=== PATIENT | female | born 1950 | race Caucasian/White ===

== ENCOUNTER 2021-02-19 09:36 | Outpatient (CLI) | payer MEDICARE, OTHER, SELFPAY ==
--- NOTE | ~2021-02-19 | MM_ITS ---
EXAMINATION: MM screening dennise BI w steph HISTORY: Screening TECHNIQUE: Craniocaudal and mediolateral oblique 3-D tomosynthesis images were obtained and synthetic 2-D images were generated. CAD analysis was submitted and interpreted. COMPARISON: Comparison to multiple prior studies sequentially, with oldest reviewed study dated 12/12. BREAST PARENCHYMAL COMPOSITION: There are scattered areas of fibroglandular density. FINDINGS: There is no evidence of suspicious mass, calcification, or architectural distortion to sugg est malignancy in either breast. There has been no suspicious interval change. IMPRESSION: 1. No mammographic evidence of malignancy. 2. Recommend routine screening mammography in one year. BI-RADS Category 1: Negative Reviewed, dictated and finalized at location A.
== END 2021-02-19 09:37 | disposition home or self-care (01) ==
LOC: ANHIMG 09:37
PROVIDERS: PCP Internal Medicine; Visit Provider Student in an Organized Health Care Education/Training Program
DX: Z12.31 Encounter for screening mammogram for malignant neoplasm of breast (principal)
CPT/HCPCS: 77063; 77067

== ENCOUNTER 2021-04-24 09:42 | Emergency (ER) | payer MEDICARE, OTHER, SELFPAY ==
[2021-04-24 09:53] VITALS: BP 134/79; PULSE 69; RESP 16; TEMP 36.7; O2SAT 98
--- NOTE | 2021-04-24 10:19 | ED.GENADULT ---
HPI - General Adult General Chief complaint: Urogenital-Female Stated complaint: UTI Source: patient Mode of arrival: ambulatory Limitations: no limitations History of Present Illness HPI narrative: Patient presents for evaluation of urinary symptoms for last 2 days. Symptoms include dysuria, urinary frequency and hesitancy. She denies any hematuria, abdominal pain, low back pain, fever, chills, nausea, vomiting. She has an underlying history of diabetes but states her blood sugars are running in the 120s to 140s at home. She is compliant with Metformin. She also history of chronic kidney disease but states her last GFR was 37. She has multiple drug allergies and states that she has been given amoxicillin in the past for urinary tract infection and this has been ineffective. Related Data Home Medications Medication Instructions Recorded Confirmed aspirin 81 mg tablet,delayed 81 mg PO DAILY 08/05/19 04/24/21 release atorvastatin 40 mg tablet 40 mg PO DAILY 08/05/19 04/24/21 blood sugar diagnostic #10 each 08/05/19 03/02/21 metoprolol tartrate 50 mg tablet 50 mg PO Q12H 08/05/19 04/24/21 valsartan 160 1 tablet PO DAILY 08/05/19 04/24/21 mg-hydrochlorothiazide 25 mg tablet glucos sul [id number] 1 cap PO DAILY 04/24/21 04/24/21 [Glucosamine Chondroitin] omega-3 fatty acids [Fish Oil] 1 cap PO DAILY 04/24/21 04/24/21 Allergies Allergy/AdvReac Type Severity Reaction Status Date / Time azithromycin Allergy Unknown Diarrhea Verified 03/02/21 08:34 carvedilol Allergy Unknown Diarrhea Verified 03/02/21 08:34 cephalexin Allergy Unknown Unknown Verified 04/24/21 10:06 ezetimibe Allergy Unknown Unknown Verified 03/02/21 08:34 rosuvastatin Allergy Unknown Unknown Verified 03/02/21 08:34 Sulfa (Sulfonamide Allergy Unknown Unknown Verified 04/24/21 10:06 Antibiotics) telithromycin Allergy Unknown Unknown Verified 04/24/21 10:06 Review of Systems Review of Systems: Narrative: CONSTITUTIONAL: Denies fever, chills, or sweats. EYES: Denies visual changes, redness, or discharge. ENT: Denies rhinorrhea, congestion, sore throat, or otalgia. CARDIOVASCULAR: Denies chest pain, palpitations, or edema. RESPIRATORY: Denies cough or dyspnea. GASTROINTESTINAL: Denies abdominal pain, nausea, vomiting, or diarrhea. GENITOURINARY: Reports urinary hesitancy, frequency, dysuria. Denies hematuria SKIN: Denies rash or itching. MUSCULOSKELETAL: Denies back pain, joint pain, or myalgia. NEUROLOGIC: Denies headache, numbness, dizziness, or weakness. PSYCHIATRIC: Denies anxiety or depression. PMFSH Past Medical History Medical History Chronic renal failure, stage 3 (moderate) Other hyperlipidemia Type 2 diabetes mellitus with hyperglycemia Type 2 diabetes mellitus with kidney complication, without long-term current use of insulin Surgical History Surgical History H/O coronary artery bypass surgery H/O heart bypass surgery History of tubal ligation Family History Family History Father Hypertension Family history of diabetes mellitus in first degree relative Diabetes mellitus Sibling Hypertension Family history of diabetes mellitus in first degree relative Acute myocardial infarction Mother Family history of elevated blood lipids Patient's mother is in good health Hypertension Other Family history of coronary artery disease Family history of kidney disease Social History Social History Smoking status: Never smoker Second hand tobacco smoke exposure: No Smoking end date: 10/02/05 Alcohol intake: current Gender identity (if verbalized by the patient): Female Exam Narrative: Exam Narrative: GENERAL: Well-appearing, well-nourished, and in no acute distress. HEAD:
== END 2021-04-24 10:30 | disposition home or self-care (01) ==
PROVIDERS: Emergency Provider Nurse Practitioner; PCP Internal Medicine
DX: N30.00 Acute cystitis without hematuria (principal); I13.10 Hypertensive heart and chronic kidney disease without heart failure, with stage 1 through stage 4 chronic kidney disease, or unspecified chronic kidney disease; E11.22 Type 2 diabetes mellitus with diabetic chronic kidney disease; N18.30 Chronic kidney disease, stage 3 unspecified; Z79.4 Long term (current) use of insulin; I25.10 Atherosclerotic heart disease of native coronary artery without angina pectoris; Z95.1 Presence of aortocoronary bypass graft; E78.5 Hyperlipidemia, unspecified
CPT/HCPCS: 81003; 87077; 87086; 87186; 99213; G0463

== ENCOUNTER 2021-05-20 09:14 | Outpatient (CLI) | payer MEDICARE, OTHER, SELFPAY ==
[2021-05-20 09:52] LABS: Add Urine Microscopic? YES; Appearance Urine Clear (Clear); Bilirubin Urine Negative (Negative); Blood Urine Negative (Negative); Color Urine Yellow (Yellow); Glucose Urine UA Negative (Negative); Ketones Urine Negative (Negative); Leukocyte Esterase Ur 2+ LEU/UL (Negative); Mucus Urine Rare /lpf; Nitrate Urine Negative (Negative); Protein Urine Negative (Negative); RBC Urine 0-2 /hpf (0-2); Squamous Epithelial Cell Urine Rare /hpf (Few); Urobilinogen Urine Negative mg/dL (<2.0)
[2021-05-20 09:57] LABS: Anion Gap 10 mmol/L (8-16); Blood Urea Nitrogen 23 mg/dL (7-17); Calcium 10.1 mg/dL (8.4-10.2); Carbon Dioxide 28 mmol/L (22-30); Chloride 102 mmol/L (98-107); Cholesterol 165 mg/dL (0-200); Estimated Glomerular Filt Rate 37; Glucose 144 mg/dL (65-110); HDL Direct 38 mg/dL; Potassium 4.1 mmol/L (3.4-5.0); Sodium 140 mmol/L (137-145); Triglycerides 249 mg/dL (<150)
[2021-05-20 10:09] LABS: LDL Cholesterol Direct 67 mg/dL
[2021-05-20 10:36] LABS: Creatinine Urine 65.1 mg/dL
[2021-05-20 10:42] LABS: MALB Creatinine Ratio < 9.2 mg/g (0-30); Microalbumin Urine Random < 6.0 mg/L (0-16.7)
== END 2021-05-20 09:15 | disposition home or self-care (01) ==
PROVIDERS: PCP Internal Medicine; Visit Provider Internal Medicine
DX: E11.22 Type 2 diabetes mellitus with diabetic chronic kidney disease (principal); N18.32 Chronic kidney disease, stage 3b; R30.0 Dysuria
CPT/HCPCS: 36415; 80048; 80061; 81001; 82043; 82607; 84443; 87086

== ENCOUNTER 2021-09-06 10:00 | Outpatient (RCR) | payer MEDICARE, SELFPAY ==
--- NOTE | 2021-08-11 11:18 | PTOPEVAL ---
PHYSICAL THERAPY EVALUATION Thank you for referring Alicia Proctor to [facility].? Alicia was evaluated for the dx of cervicalgia with left arm radiculopathy. The patient is scheduled to be seen for therapy? 2 x/week for 4 weeks. Please review, sign, date and return this plan of care JEREMIAH. I agree with and certify that the following plan of care is medically necessary. Referring Physician Date Attending Provider: Dru Valdez MD *PT Outpatient Evaluation Start: 08/11/21 08:33 Freq: Status: Active Protocol: Document 08/11/21 08:41 MLV (Rec: 08/11/21 09:50 MLV [id number]) Therapy Assessment Status Assessment Status Assessment Status Evaluation Evaluation Information Problem Diagnosis neck pain with left arm radiculopathy Additional Evaluation Detail The patient reports having neck pain for a long time but has gotten notably worse over the last 2 months. The patient denies any injury. The patient is to see a neurologist regarding her neck also, but recognizes that surgery may be a poor option due to some health issues. The patient has increased left arm pain, constant, that is affecting sleep position and the amount of normal daily activities she completes. Pain Assessment Timing of Pain Assessment Timing of Pain Assessment Assessment Pain Scale Pain Scale Used Numeric (1 - 10) Self Report Pain Assessment Left Arm(s) Reported Pain Level 5 Pain Description Aching Pain Frequency Continuous Neck Reported Pain Level 2 Pain Description Tightness Pain Score Pain Score 2,5: Self Report Interventions Used Interventions Used By Clinicians Education,Electrical Stimulation,Exercise,Heat Pain Relief Interventions Used By Heat,Position Change Patient Other Alleviating Interventions tylenol rarely Cervical and Lumbar ROM Cervical ROM Cervical Flexion (0-60) 67 Query Text:Active in Degrees Cervical Extension (0-70) 46 Query Text:Active in Degrees Cervical Lateral Flexion Right (0-50) 33 Query Text:Active in Degrees Cervical Lateral Flexion Left (0-50) 32 Query Text:Active in Degrees Cervical Rotation Right (0-90) 80 Query Text:Active in Degrees Cervical Rotation Left (0-90)
--- NOTE | 2021-09-06 10:55 | PTOPEVAL ---
PHYSICAL THERAPYDISCHARGE SUMMARY Thank you for referring Alicia Proctor to [facility].? The patient has completed 7 visits for PT for the dx of cervical radiculopathy. Goals are partially met and peaked. DC PT. Please review, sign, date and return this plan of care JEREMIAH. I agree with and certify that the following plan of care is medically necessary. Referring Physician Date Attending Provider: Dru Valdez MD *PT Outpatient Discharge Start: 08/11/21 08:33 Freq: Status: Active Protocol: Document 09/06/21 10:00 MLV (Rec: 09/06/21 10:55 [facility] [id number]) Therapy Assessment Status Assessment Status Assessment Status Discharge Evaluation Information Problem Diagnosis neck pain with left arm radiculopathy Additional Evaluation Detail The patient reports the symptoms at her arm are about 50% better with less frequency of arm symptoms. The patient reports using her arm will increase her arm pain and has learned how to modify her activities some. The symptoms at her are still affecting her sleep pattern despite therapy intervention. Pain Assessment Timing of Pain Assessment Timing of Pain Assessment Assessment Pain Scale Pain Scale Used Numeric (1 - 10) Self Report Pain Assessment Left Arm(s) Reported Pain Level 4 Pain Description With Movement Pain Frequency Intermittent Pain Aggravating Factors Exercise/Activity Neck Reported Pain Level 0 Pain Score Pain Score 4,0: Self Report Interventions Used Interventions Used By Clinicians Distraction,Education, Electrical Stimulation, Exercise,Heat,Manual Therapy Techniques Pain Relief Interventions Used By Exercise,Heat,Inactivity/Rest, Patient Position Change Cervical and Lumbar ROM Cervical ROM Cervical Flexion (0-60) 67 Query Text:Active in Degrees Cervical Extension (0-70) 46 Query Text:Active in Degrees Cervical Lateral Flexion Right (0-50) 43 Query Text:Active in Degrees Cervical Lateral Flexion Left (0-50) 44 Query Text:Active in Degrees Cervical Rotation Right (0-90) 80 Query Text:Active in Degrees Cervical Rotation Left (0-90) 67 Query Text:Active in Degrees Upper Extremity Range of Motion General Upper Extremity Range of Motion Reason Not Measured WFL/Left,WFL/Right Palpat
== END 2021-09-07 09:56 | disposition home or self-care (01) ==
LOC: ANHPT 10:00
PROVIDERS: PCP Internal Medicine; Visit Provider Orthopaedic Surgery
DX: M54.2 Cervicalgia (principal)
CPT/HCPCS: 97014; 97110; 97140; 97162; G0283

== ENCOUNTER 2022-07-11 13:34 | Outpatient (CLI) | payer MEDICARE, SELFPAY ==
--- NOTE | ~2022-07-11 | MR_ITS ---
EXAMINATION: MR cervical spine wo con DATE: 07/11/2022 14:23 INDICATION: Cervical spinal stenosis. TECHNIQUE: Magnetic resonance imaging (MRI) of the cervical spine was performed without intravenous c ontrast. Sequences included sagittal T2-weighted FSE, sagittal T2-weighted FS FSE, sagittal T1-weight ed FSE, axial MERGE, and axial T2-weighted FSE. COMPARISON: None FINDINGS: There is 3 degrees levocurvature of cervical spine. There is 2 mm retrolisthesis of C4 on C 5. There is kyphosis of cervical spine. Vertebral body heights are normal. There is severely decrease d disc height at C3-C4 and C4-C5, moderately decreased disc height at C5-C6, and severely decreased d isc height at C6-C7 with endplate remodeling. There is increased T2-weighted signal intensity in the spinal cord at C4-C5, C5-C6, and C6-C7, consistent with myelomalacia. The following disc levels are s pecifically discussed: C2-C3: The disc does not extend beyond the endplate margin. There is no uncovertebral joint osteoarth ritis. There is moderate bilateral facet joint osteoarthritis. There is no neural foraminal stenosis. There is no central canal stenosis. C3-C4: The disc is bulging with superimposed central extrusion. There is severe bilateral uncovertebr al joint osteoarthritis. There is severe bilateral facet joint osteoarthritis. There is mild bilatera l neural foraminal stenosis. There is moderate central canal stenosis with ventral and dorsal indenta tion of the spinal cord. C4-C5: The disc is bulging. There is severe bilateral uncovertebral joint osteoarthritis. There is mo derate bilateral facet joint osteoarthritis. There is mild bilateral neural foraminal stenosis. There is moderate central canal stenosis with ventral and dorsal indentation of the spinal cord. C5-C6: The disc is bulging. There is severe bilateral uncovertebral joint osteoarthritis. There is mo derate right and mild left facet joint osteoarthritis. There is moderate bilateral neural foraminal s tenosis. There is mild central canal stenosis. C6-C7: The disc is bulging. There is severe bilateral uncovertebral joint osteoarthritis. There is mo derate right and severe left facet joint osteoarthritis. There is mild right and moderate left neural foraminal stenosis. There is mild central canal stenosis. C7-T1: The disc does not extend beyond the endplate margin. There is no uncovertebral joint osteoarth ritis. There is severe bilateral facet joint osteoarthritis. There is mild bilateral neural foraminal stenosis. There is no central canal stenosis. IMPRESSION: 1. Myelomalacia at C4-C5, C5-C6, and C6-C7. 2. Severe cervical spondylosis. Reviewed, dictated and finalized at location A.
== END 2022-07-11 13:35 | disposition home or self-care (01) ==
PROVIDERS: PCP Internal Medicine; Visit Provider Internal Medicine
DX: M48.02 Spinal stenosis, cervical region (principal); M47.813 Spondylosis without myelopathy or radiculopathy, cervicothoracic region; M48.03 Spinal stenosis, cervicothoracic region; G95.89 Other specified diseases of spinal cord
CPT/HCPCS: 72141

== ENCOUNTER 2023-01-24 12:33 | Outpatient (CLI) | payer MEDICARE, SELFPAY ==
--- NOTE | ~2023-01-24 | DEXA_ITS ---
Bone Density Report Name: DAGO VILLALOBOS Age: 72 Sex: Female Ethnicity: White Date of : 1950 Indication: postmenopausal; screening for osteoporosis; Referring Provider: VIDAL FERRERA Study: Bone densitometry was performed. Exam Date: January 24, 2023 Accession number: [id number] Bone Density: Region BMD T-score Z-score Classification AP Spine(L1-L4) 0.989 -0.5 1.7 Normal Femoral Neck (Left) 0.733 -1.0 0.8 Normal Total Hip (Left) 0.898 -0.4 1.2 Normal Femoral Neck (Right) 0.735 -1.0 0.9 Normal Total Hip (Right) 0.872 -0.6 1.0 Normal Total Hip Mean 0.885 -0.5 1.1 Normal World Health Organization criteria for BMD impression classify patients as: Normal (T-score at or above -1.0), Osteopenia (T-score between -1.0 and -2.5), or Osteoporosis (T-score at or below -2.5). 10-year Fracture Risk: FRAX not reported because: All T-scores for Spine Total, Hip Total, Femoral Neck at or above -1.0 Previous Exams: Region Exam Age BMD T-score BMD Change BMD Change Date g/cm2 vs Baseline vs Previous AP Spine (L1-L4) 01/24/2023 72 0.989 -0.5 0.056 (6.0%)# 0.001 (0.1%) 01/07/2019 68 0.988 -0.5 0.055 (5.9%)# 0.050 (5.4%)* 08/21/2015 65 0.938 -1.0 0.004 (0.5%)# 0.004 (0.5%)# 12/26/2012 62 0.933 -1.0 Total Hip(Left) 01/24/2023 72 0.898 -0.4 -0.043 (-4.6%) 0.011 (1.2%) 01/07/2019 68 0.887 -0.4 -0.054 (-5.7%) -0.036 (-3.9%) 08/21/2015 65 0.923 -0.2 -0.018 (-1.9%) -0.018 (-1.9%) 12/26/2012 62 0.941 0.0 Total Hip(Right) 01/24/2023 72 0.872 -0.6 -0.096 (-9.9%) -0.005 (-0.6%) 01/07/2019 68 0.877 -0.5 -0.091 (-9.4%) -0.052 (-5.6%) 08/21/2015 65 0.928 -0.1 -0.039 (-4.0%) -0.039 (-4.0%) 12/26/2012 62 0.967 0.2 *Denotes significance at 95% confidence level, LSC for AP Spine = 0.022 g/cm2, LSC for Total Hip = 0.027 g/cm2 # Denotes dissimilar scan types or analysis methods Clinical Information Provided by Patient: Patient maximum height was 65 Menopause Age: 51 No regular weight bearing exercise Drinks caffeinated beverages Onset of menses at age 13 Number of children 2 Impression: The patient has normal bone mass. No significant bone loss was observed. Discussion: BONE DENSITY IS ABOVE THE MINIMUM DESIRABLE LEVEL AT ALL SKELETAL SITES TESTED. This patient?s bone mineral density is above the minimum desirable level (T-score -1.0 or better) at all sites measured.
== END 2023-01-24 12:34 | disposition home or self-care (01) ==
LOC: ANHIMG 12:34
PROVIDERS: PCP Internal Medicine; Visit Provider Internal Medicine Endocrinology, Diabetes & Metabolism
DX: Z78.0 Asymptomatic menopausal state (principal)
CPT/HCPCS: 77080

== ENCOUNTER 2023-08-30 14:09 | Outpatient (CLI) | payer MEDICARE, SELFPAY ==
--- NOTE | ~2023-08-30 | US_ITS ---
EXAMINATION: US carotid duplex BI DATE: 08/30/2023 15:45 INDICATION: Atherosclerosis. TECHNIQUE: Grayscale, color Doppler, and pulsed Doppler images of the cervical carotid arteries were obtained. The degree of vessel stenosis is placed in one of the following categories: normal, <50%, 5 0-69%, >=70% but less than near-occlusion, near-occlusion, or total occlusion. Note that percent sten osis relative to normal distal artery lumen diameter is indirectly measured from velocity measurement s as described by Mustapha, et al. Radiology 2003; 229:340-346. Notes: Normal: Peak systolic velocity <125 centimeters/sec and no plaque <50%. Peak systolic velocity <125 ( EDV <40; ICA/CCA PSV ratio <2.0; used these factors only a tandem lesions or low cardiac output or co ntralateral disease) 50-69 %: PSV 125-230 (EDV 40-100; ratio 2-4) >= 70% but less than near occlusion: PSV greater than 230 (EDV > 100; ratio> 4.0) Near Occlusion: PSV that is variable; markedly narrowed lumen Occlusion: Absent flow on color/spectral Doppler and no lumen on asif scale. COMPARISON: Ultrasound dated 11/25/2014. FINDINGS: RIGHT: The right common carotid artery (CCA) peak systolic velocity (PSV) is 127 cm/s. The right internal ca rotid artery (ICA) PSV is 45 cm/s. The right ICA end-diastolic velocity (EDV) is 12 cm/s. The right I CA/CCA PSV ratio is 0.4. The external carotid artery (ECA) PSV is 102 cm/s. There is antegrade flow i n the right vertebral artery. LEFT: The left CCA PSV is 119 cm/s. The left ICA PSV is 70 cm/s. The left ICA EDV is 25 cm/s. The left ICA/ CCA PSV ratio is 0.7. The ECA PSV is 58 cm/s. There is antegrade flow in the left vertebral artery. IMPRESSION: 1. Less than 50% stenosis in the right internal carotid artery by sonographic criteria. 2. Less than 50% stenosis in the left internal carotid artery by sonographic criteria. Reviewed, dictated and finalized at location B. [employer] VENDOR IMPRESSION: 1. Less than 50% stenosis in the right internal carotid artery by sonographic c renyeria. 2. Less than 50% stenosis in the left internal carotid artery by sonographic cr mynor.
== END 2023-08-30 14:10 | disposition home or self-care (01) ==
PROVIDERS: PCP Internal Medicine; Visit Provider Nurse Practitioner Adult Health
DX: I65.23 Occlusion and stenosis of bilateral carotid arteries (principal)
CPT/HCPCS: 93880

== ENCOUNTER 2023-12-05 13:27 | Outpatient (CLI) | payer MEDICARE, SELFPAY ==
--- NOTE | ~2023-12-05 | XR_ITS ---
EXAMINATION: XR lumbar spine 6V w bending DATE: 12/05/2023 14:03 INDICATION: Low back pain TECHNIQUE: Anteroposterior, lateral in neutral, flexion and extension, and bilateral oblique views of the lumbar spine, and cone-down lateral view of the lumbosacral junction were obtained. COMPARISON: None. FINDINGS: There are 2 mm of anterolisthesis of L4 on L5 and 4 mm of retrolisthesis of L5 on S1. No hy permobility is present with flexion or extension. There is severe loss of intervertebral disc space h eight at L5-S1 and moderate loss of disc space height at L2-3. The vertebral body heights are maintai vani. There is no fracture. There is severe facet joint osteoarthritis at L4-5 and L5-S1. Calcified at herosclerosis is noted. IMPRESSION: 1. Lumbar spondylosis as described above without acute findings. Reviewed, dictated and finalized at location B. 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
== END 2023-12-05 13:28 | disposition home or self-care (01) ==
LOC: ANHIMG 13:29
PROVIDERS: PCP Internal Medicine; Visit Provider Physician Assistant
DX: M43.06 Spondylolysis, lumbar region (principal); M54.30 Sciatica, unspecified side
CPT/HCPCS: 72114

== ENCOUNTER 2023-12-25 09:16 | Outpatient (CLI) | payer MEDICARE, SELFPAY ==
--- NOTE | ~2023-12-25 | MM_ITS ---
EXAMINATION: MM screening dennise BI w steph HISTORY: Screening mammogram TECHNIQUE: Craniocaudal and mediolateral oblique 3-D tomosynthesis images were obtained and synthetic 2-D images were generated. CAD analysis was submitted and interpreted. COMPARISON: 02/19/2021 bilateral screening mammogram examination BREAST PARENCHYMAL COMPOSITION: There are scattered areas of fibroglandular density. FINDINGS: 2 biopsy markers on the right seminal history of 2 prior benign right breast biopsies. Ther e is no evidence of suspicious mass, calcification, or architectural distortion to suggest malignancy in either breast. There has been no suspicious interval change. IMPRESSION: 1. No mammographic evidence of malignancy. 2. Recommend routine screening mammography in one year. BI-RADS Category 1: Negative Reviewed, dictated and finalized at location A.
== END 2023-12-25 09:17 | disposition home or self-care (01) ==
LOC: ANHIMG 09:18
PROVIDERS: PCP Internal Medicine; Visit Provider Physician Assistant
DX: Z12.31 Encounter for screening mammogram for malignant neoplasm of breast (principal)
CPT/HCPCS: 77063; 77067

== ENCOUNTER 2024-03-05 13:15 | Outpatient (RCR) | payer MEDICARE, SELFPAY ==
--- NOTE | 2024-03-07 17:29 | PTOPDC ---
Assessment and note entered by William Mayberry, PT Evaluation Information Assessment Status Discharge - Pt Not Present Diagnosis Dizziness Onset approx 3 months ago Subjective Information Patient contacted clinic requesting discharge from therapy at this time. States that she has a lot going on and does not feel that therapy is going to help her problem. Reports that she has been checking her blood pressure often and will continue to do so. Assessment PT Clinical Summary Discharge patient from skilled therapy at this time per patient request. Patient was negative for BPPV per first two examinations. Noted to have some blood pressure fluctuations and was requested to monitor as she is at risk for orthostasis episodes. Plan of Care PT Services Indicated D/C
== END 2024-03-08 07:58 | disposition home or self-care (01) ==
LOC: ANHPT 13:15
PROVIDERS: PCP Internal Medicine; Visit Provider Physician Assistant
DX: R42 Dizziness and giddiness (principal)
CPT/HCPCS: 97110; 97112; 97140; 97161; 97530

== ENCOUNTER 2025-02-26 09:27 | Outpatient (RCR) | payer MEDICARE, SELFPAY ==
[2025-02-26 09:30] VITALS: BMI 25.0
== END 2025-05-19 10:35 | disposition home or self-care (01) ==
LOC: ANHDMC 09:27
PROVIDERS: PCP Internal Medicine; Visit Provider Internal Medicine Endocrinology, Diabetes & Metabolism
DX: E11.22 Type 2 diabetes mellitus with diabetic chronic kidney disease (principal); N18.32 Chronic kidney disease, stage 3b; Z71.3 Dietary counseling and surveillance
CPT/HCPCS: 97802

== ENCOUNTER 2025-09-22 07:41 | Emergency (ER) | payer MEDICARE, SELFPAY ==
--- OUTSIDE RECORDS SUMMARY | 2025-09-22 07:43 | XMS_ITS | Encounter Summary ---
Author Organization [facility] Healthcare Address [address] [place] [address] Care Team Providers Care Physical Fitness Teacher Name Role Phone Barry Groves MD Primary Care Provider [phone] Hernandez Valderrama DO Primary Care Provider Encounter Details Date Type Department Care Team (Late st Contact Info) Description 12/11/2017 Orders Only [facility] [place] [facility] [address] [place] [id number] Scanning, Provider Social History Tobacco Use Types Packs/Day Years Used Date Smoking Tobacco: Former Alcohol Use Standard Drinks/Week Comments Yes 0 (1 standard drink = 0.6 oz pur e alcohol) Comments Unknown Sex and Gender Information Value Date Recorded Sex Assigned at Not on file 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 Gender Identity Not on file Sexual Orientation Not on file documented as of this encounter Plan of Treatment Not on file documented as of this encounter Procedures Procedure Name Priority Date/Time Associated Diagnosis Comments SCAN - LABS 12/11/2017 documented in this encounter Results * SCAN - LABS (12/11/2017) us Provider Scanning Final Result documented in this encounter Visit Diagnoses Not on filedocumented in this encounter Care Teams Physical Fitness Teacher Relationship Specialty Start Date End Date Barry Groves MD [address] [facility] [address] [place] [address] PCP - General 02/18/14 06/26/24 Hernandez Valderrama DO [address] [address] PCP - General Internal Medicine 06/27/24 documented as of this encounter
--- OUTSIDE RECORDS SUMMARY | 2025-09-22 07:43 | XMS_ITS | Clinical Summary ---
Author Organization [facility] [place] [address] Address [address] [place] [address] Care Team Providers Care Braille Typist Name Role Phone Hernandez Valderrama DO Primary Care Provider [phone] Allergies Active Allergy Reactions Criticality Noted Date Comments Azithromycin Unknown,Diarrhea Low 04/16/2019 Cephalexin Rash Medium Erythromycin Base Diarrhea Low 04/16/2019 Sulfanilamide Rash Medium Medications blood glucose diagnostic (ONETOUCH ULTRA TEST) strip pt test 2x's daily One touch Ultra 2 meter 100 6 06/27/2011 Active traZODone (DESYREL) 100 mg tablet Take 1 tablet (100 mg total) by mouth nightly Active ALPRAZolam (XANAX) 0.5 mg tablet Take 1 tablet (0.5 mg total) by mouth 2 (two) times a day as needed 06/15/2018 Active aspirin 81 mg chewable tablet Take 1 tablet (81 mg total) by mouth daily. 08/05/2018 Active fluticasone propion-salmeter oL (ADVAIR DISKUS) 100-50 mcg/dose diskus inhaler Inhale 1 puff 2 (two) times a day Rinse mouth with water after use. Do not swallow. Active metoprolol tartrate (LOPRESSOR) 50 mg immediate release tablet Take 1 tablet (50 mg total) by mouth 2 (two) times a day 11/05/2019 Active valsartan-hydroC HLOROthiazide (DIOVAN-HCT) 160-12.5 mg per tabletIndication s:hypertension Take 1 tablet by mouth daily Active metFORMIN (GLUCOPHAGE) 500 mg tablet Take 1 tablet (500 mg total) by mouth 2 (two) times a day with meals Active glucosam-chondro itin-diet cb25 116-100 mg capsule Take by mouth Active omeprazole (PriLOSEC) 20 mg capsule Take 1 capsule (20 mg total) by mouth daily 05/21/2023 Active nitroglycerin (NITROSTAT) 0.4 mg SL tabletIndication s:Coronary artery disease of [place] heart with stable angina pectoris, unspecified vessel or lesion type Place 1 tablet (0.4 mg total) under the tongue every 5 (five) minutes as needed for chest pain 25 tablet 1 08/15/2023 Active HYDROcodone-acet aminophen (NORCO) 5-325 mg per tablet Take by mouth every 8 (eight) hours as needed 12/12/2023 Active Cholestyramine Light 4 gram powder 06/18/2024 Active atorvastatin (LIPITOR) 40 mg tablet TAKE 1 TABLET(40 MG) BY MOUTH EVERY NIGHT 90 tablet 3 02/03/2025 Active isosorbide mononitrate ER (IMDUR) 60 mg 24 hr tablet TAKE 1 TABLET(60 MG) BY MOUTH DAILY 90 tablet 3 08/18/2025 Active Hospital, Clinic, or Other Facility Administered Medication Ordered Dose Route Frequency Start Date End Date Status acetaminophen (TYLENOL) tablet 650 mgIndications:Post-op pain 650 mg oral Every 6 hours PRN 08/04/2018 Active Active Problems Problem Noted Date Diagnosed Date Nonrheumatic aortic valve stenosis 11/02/2021 Stenosis of cervical spine with myelopathy 09/07 Assessment & Plan (09/07/2021 5:38 PM CAM SPECIALIST): Ms. Proctor has a primary complaint of left upper arm pain. She does have foraminal stenosis C4-5 a left with impingement of C5 nerve root corresponds to the distribution of pain. We discussed all options including medications, therapy, injections and surgery. She reports that she has decreased kidney function each surgery and wishes to avoid surgery unless absolutely necessary. She also has cervical stenosis and kyphosis with signs of myelopathy. She has upgoing toes bilaterally. We discussed that with the cervical stenosis and upgoing toes, surgery is reasonable at this time. Given her worsening of kidney function with prior surgeries, she declines to pursue surgical intervention at this time. I will refer her to Pain Management for possible injections at C4-5 which may help the arm pain. She does have signs of myelopathy, but these are mild at this time. I have reviewed signs and symptoms of myelopathy which to watch out for. We discussed that if she has worsening myelopathy, the only treatment is surgical decompression and stabilization. I plan to see her back in 6 months time for re-evaluation and neurological examination. Hx of CABG 10/11/2018 Coronary artery disease invo lving [place] coronary artery of [place] heart without angina pectoris 10/01/2018 Assessment & Plan (10/01/2018 8:03 AM CAM SPECIALIST): Ms. Proctor presents post single vessel CABG after failed PCI complicated by acute dissection and RV failure. She denies chest pain or anginal symptoms. She will continue aspirin, statin, and beta gil as well as Brilinta for now. Will discuss with Dr. Joe need for continuing Brilinta. She is to start cardiac rehab at [facility] and plans to follow up with Dr. Garcia at [facility] for ongoing cardiology care. I have asked to arrange appointment in the next 1-2 weeks. Right ventricular systolic dysfunction 8 Assessment & Plan (10/01/2018 8:13 AM CAM SPECIALIST): Ms. Proctor presents with NYHA Class II symptoms. She is compensated and euvolemic on exam. She will follow up in the 3 months in the [facility]. I have asked her to obtain a repeat echocardiogram when she sees her primary design painter. Peripheral artery disease 10/01/2018 Assessment & Plan (10/01/2018 8:18 AM CAM SPECIALIST): Continue aspirin and statin. Paroxysmal atrial fibrillation 10/01/2018 Assessment & Plan (10/01/2018 8:16 AM CAM SPECIALIST): History of post-operative AF. EKG in office today demonstrates sinus rhythm. Amiodarone discontinued due to nausea, she remains on metoprolol. Coronary artery disease invo lving [place] coronary artery of [place] heart with angina pectoris 07/03/2018 Overview (07/03/2018): Added automatically from request for surgery [id number] Abnormal stress test 06/21/2018 CKD stage 3 due to type 2 diabetes mellitus 06/03 Assessment & Plan (10/01/2018 8:26 AM CAM SPECIALIST): Ms. Proctor has chronic kidney disease. She is to have follow up labs done at Dr. Groves's office to monitor renal status. I have encouraged her to schedule follow up with her feed mill supervisor in the next couple of weeks. Coronary artery disease of n ative artery of [place] heart with stable angina pectoris 06/19/2018 Type 2 diabetes mellitus 02/18/2014 Overview (01/06/2017): DMII WO CMP UNCNTRLD Hypertension 08/14/2012 Overview (01/06/2017): Hypertension, Unspecified Assessment & Plan (10/01/2018 8:20 AM CAM SPECIALIST): BP is elevated in the office today. I have asked her to increase metoprolol dose to 25 mg BID. I have also asked that she monitor BP's at home and call next week with readings. She will need close monitoring of BP and better control. Hyperlipidemia 08/14/2012 Overview (01/06/2017): HYPERLIPIDEMIA NEC/NOS Assessment & Plan (10/01/2018 8:21 AM CAM SPECIALIST): Continue statin. Follow up monitoring per primary design painter. Encounter for long-term (cur rent) use of high-risk medication Uncontrolled type 2 diabetes mellitus with hyper glycemia Bloody pleural effusion Resolved Problems Problem Noted Date Diagnosed Date Resolved Date Angina pectoris, unstable 06/19/2018 Surgical History Surgery Date Site/Laterality Comments CARPAL TUNNEL RELEASE Right Carpal tunnel release CARDIAC CATHETERIZATION GANGLION CYST EXCISION Right hand TUBAL LIGATION Bilateral CAROTID ENDARTERECTOMY right endarterectomy, left endarterectomy CORONARY ARTERY BYPASS GRAFT 07/18/2018 Urgent X1 after failed PCI Medical History Medical History Date Comments Hypertension Hypertension Hyperlipidemia Sleep apnea Coronary artery disease Carotid artery disease Diabetes mellitus Chronic kidney disease CAD (coronary artery disease) Old myocardial infarct GERD (gastroesophageal reflux disease) Family History Medical History Relation Name Comments Diabetes Brother Diabetes mellit us; Heart attack Brother Had a heart att ack in surgery Diabetes Father Diabetes mellit us; Arrhythmia Mother Other Mother No history of D iabetes mellitus; Relation Name Status Comments Brother Father (Age 89) Kidney dz Mother Alive Social History Tobacco Use Types Packs/Day Years Used Date Smoking Tobacco: Former Smokeless Tobacco: Never Tobacco Cessation:Counseling Given: Not Answered Alcohol Use Standard Drinks/Week Comments No 0 (1 standard drink = 0.6 oz pur e alcohol) AUDIT-C Answer Date Recorded Q1: How often do you have a drink containing alc ohol? Never 09/07/2021 Average Number of Drinks Not on file 021 Frequency of Binge Drinking Not on file 04/2021 PHQ-2 Answer Date Recorded PHQ-2 Total Score (If total score is 3 or more points, staff should administer the PHQ-9) 0 09/07/2021 Comments Unknown Sex and Gender Information Value Date Recorded Sex Assigned at Not on file Legal Sex Female 9:08 AM CAM SPECIALIST Gender Identity Not on file Sexual Orientation Not on file Occupation Industry Job Start Date Job End Date Retired Not on file Not on file Not on file Last Filed Vital Signs Vital Sign Reading Time Taken Comments Blood Pressure 120/70 05/16/2025 1:52 PM CDT Pulse 68 05/16/2025 1:52 PM CDT Temperature 36.7 C (98 F) 08/04/2018 12:49 PM CDT Respiratory Rate 16 09/06/2018 10:24 AM CAM SPECIALIST Oxygen Saturation 96% 05/16/2025 1:52 PM CDT Inhaled Oxygen Concentration - - Weight 66.3 kg (146 lb 1.6 oz) 05/16/2025 1:52 P M CDT Height 162.6 cm (5' 4) 05/16/2025 1:52 PM CDT Body Mass Index 25.08 05/16/2025 1:52 PM CDT Plan of Treatment Health Maintenance Due Date Last Done Comments Albumin Creatinine Ratio, Urine 1950 Breast Cancer Screening-Mammogram 1950 Colon Cancer Screening-Colonoscopy 1950 Fall Risk Assessment 1950 Hepatitis C Screening 1950 Osteoporosis Screening-Bone Density Scan 1950 Dilated Eye Exam 1950 Foot Exam 1950 Hepatitis B Screening 1969 Zoster Vaccine (2 of 3) 10/06/2014 08/11/2014 Well Visit 65+ 2016 Hemoglobin A1C 01/30/2019 08/02/2018 eGFR 08/04/2019 08/04/2018, 11/2017, 08/02/2018, Additional history exists Depression Screening 09/07/2022 09/07/2021, 09/07/20 21 DTaP/Tdap/Td Vaccine (2 - Td or Tdap) 04/25/2025 04/25/2015 Covid-19 Vaccine (4 - 2024-2 6 season) 2025 08/16/2021, 12/22/2020, 11/11/2020 Influenza Vaccine (#1) 2025 , 07/15/2021, 07/01/2020, Additional history exists Lipid Panel 05/16/2026 05/16/2025, 12/01, 12/20/2022, Additional history exists Pneumococcal vaccine 65+ Completed 017, 06/02/2017, 07/01/2016, Additional history exists Medical Devices Implanted Type Area Deaf Teacher Device Identifier Shelf Expiration Date Model / Serial / Lot Terumo Cardio Vascular [id number] Gelweave Od6 Mm L30 Cm Suture Retention Unique Hydrolyzable Abdomen Thorax Straight Graft Cardiovascular Gelatin Polyester Woven - [id number] - [id number] Implanted:Qty: 1 on 07/18/2018 by Celio Campbell MD at [facility] Graft N/A: Heart Terumo Cardio Vascular 05/01/2021 [id number] / Amplatzer Political Science Professor Phil [id number] Amplatzer 12mm 100cm 8mm 1 Layer Wire Mesh 1 Lobe Design Optimal - [id number] Implanted:Qty: 1 on 07/26/2018 by Celio Campbell MD at [facility] Other - see comments N/A: Heart Amplatzer Political Science Professor Phil [id number] 05/01/2020 9-PLUG- 012 / / [id number] Description:Vascular plug pl aced post RVAD removal MedS[employer] X [id number] Resolute Institute 3mm 2.1-2.7fr 38mm 140cm Rapid Exchange Radiopaque - [id number] Implanted:Qty: 1 on 07/18/2018 by Terence Joe MD at [facility] Stent N/A: Coronary Medtronic [employer] X 01/21/2020 [id number] / / [id number] Description:NUNU to RCA Medtronic [employer] X [id number] Resolute Jonathan 4mm 2.1-2.7fr 12mm 140cm Rapid Exchange Radiopaque - [id number] Implanted:Qty: 1 on 07/18/2018 by Terence Joe MD at [facility] Stent N/A: Coronary Medtronic [employer] X 09/05/2019 [id number] / / [id number] Description:NUNU to RCA Procedures Procedure Name Priority Date/Time Associated Diagnosis Comments POCT LIPID PANEL Routine 05/16/2025 2:43 PM CDT Coronary artery disease involving [place] coronary artery of [place] heart with angina pectoris EGFR Routine 08/04/2018 12:21 AM CDT HEMOGLOBIN A1C Routine 08/02/2018 12:32 AM CDT from Last 3 Months or Most Recently Relevant to Health Maintenance Results * (ABNORMAL) POCT lipid panel (05/16/2025 2:43 PM CDT) Pathologist [facility] [place] Cholesterol, POC 163 <200 MG/DL HDL, POC 51 >=40 mg/dL Triglycerides, POC 231(A) <=149 mg/dL LDL Cholesterol POC 67 <=129 mg/dL Chol/HDL Ratio, POC 1.3 NONE Non-HDL Cholesterol, POC 113 NONE mg/dL Cholesterol Total, POC 163 30 - 199 mg/dL Capillary blood 05/16/2025 2 :43 PM CDT us Haim Garcia MD POINT OF CARE TEST ORDER LOREE Final Result * eGFR (08/04/2018 12:21 AM CDT) Pathologist [facility] [place] eGFR 36 mL/min/1.[address] [facility] Comment: Interpretive Data Reference Interval Normal >/= 90 mL/min/1.73m2 Mildly decreased* 60 - 89 mL/min/1.73m2 Mildly to moderately decreased 45 - 59 mL/min/1.73m2 Moderately to severely decreased 30 - 44 mL/min/1.73m2 Severely decreased 15 - 29 mL/min/1.73m2 Kidney Failure < 15 mL/min/1.73m2 *Relative to young adult level If -[place] Citizen multiply value by 1.16. Estimated glomerular filtration rate is determined by the CKD-EPI equation recommended by the National Kidney Foundation (KDIGO 2012 Clinical Practice Guideline for the Evaluation and Management of Chronic Kidney Disease. Kidney Intnl Suppl Oct 2012;3:1). The CKD-EPI equation should not be used for patients with unstable renal function and has not been validated in children and those over 70. Current interpretive data was last reviewed 2016. Blood specimen (specimen) 08/04/2018 12:21 AM CDT 08/04/2018 12:[address] [facility] - 08/04/2018 1:09 AM CDT us Quentin MUNOZ LAB BLOOD ORDERABLES Final R esult [facility] [address] Department [place] [address] * (ABNORMAL) Hemoglobin A1c (08/02/2018 12:32 AM CDT) Hgb A1C 6.1(H) 4.0 - 5.6 % [facility] Estimated Average Glucose 128 mg/dL [facility] Comment: The ADA recommends reporting an estimated Average Glucose (eAG) with all Hemoglobin A1c results using the equation derived from a study of 507 normal and diabetic adults. Minority populations were underrepresented and children were not included. (Diabetes Care 31:7554-3402, 2008). The eAG is not equivalent to a fasting glucose. Blood specimen (specimen) 08/02/2018 12:32 AM CDT 08/02/2018 1:09 AM CDT Narrative [facility] - 08/02/2018 1:44 AM CDT us Quentin MUNOZ LAB BLOOD ORDERABLES Final R esult [facility] [address] Department [place] [address] from Last 3 Months or Most Recently Relevant to Health Maintenance Insurance [employer]HC MEDICARE ADVANTAGE [facility] MEDICARE Address: [address] [address] [place] [address] [employer] MEDICARE ADVANTAGE [facility] MEDICARE Address: [address] [address] [place] [address] Advance Directives For more information, please contact: [phone] * Full Code (Latest Code Status on File) Date Activated Date Inactivated Comments 07/18/2018 11:13 PM 08/04/2018 4:30 PM Healthcare Agents on File Name Relationship Healthcare Agent Relationshi p Communication Jalil Navas Spouse First Alternate Health Care Agent Care Teams Braille Typist Relationship Specialty Start Date End Date Hernandez Valderrama DO PCP - General Internal Medicine 06/27/24
--- OUTSIDE RECORDS SUMMARY | 2025-09-22 07:43 | XMS_ITS | Clinical Summary ---
Author Organization [facility] Address [address] [place] [address] Care Team Providers Care Divorce Mediator Name Role Phone Barry Groves DO Primary Care Provider [phone] Source Comments [facility],non-owned Affiliates and Associated Physician Practices is amultiple site organization consisting of ambulatory clinics and hospital sitesin [place], [place], [place] and [place]. This disclosure is being madepursuant to the Care Everywhere program and may not contain all information available regarding this patient. Last updated 18.[facility] [employer] Allergies Active Allergy Reactions Criticality Noted Date Comments Sulfa Drugs Urticaria Medium 06/14/2018 Social History Tobacco Use Types Packs/Day Years Used Date Smoking Tobacco: Never Assessed Comments Unknown Sex and Gender Information Value Date Recorded Sex Assigned at Not on file Legal Sex Female 9:29 AM CDT Gender Identity Not on file Sexual Orientation Not on file Plan of Treatment Health Maintenance Due Date Last Done Comments BONE DENSITY TESTING 1950 COLOGUARD (AGES 45-75) - COL ON CA SCREENING 1951 COLON MONITORING 1951 COLONOSCOPY - COLON CA SCREENING 1951 CT COLONOGRAPHY - COLON CA SCREENING 1950 Colorectal Cancer Screening 1951 FIT - COLON CA SCREENING 1951 FLEX SIG - COLON CA SCREENING 1951 LIPID TESTING 1950 MAMMOGRAM 1950 HEPATITIS C SCREENING 06/05/1969 DTAP/TDAP/TD VACCINES (1 - Tdap) 1970 PNEUMOCOCCAL VACCINE 50+ (1 of 1 - PCV) 2001 ZOSTER VACCINE (1 of 2) 2001 DEPRESSION SCREENING 10/02/2024 COVID-19 VACCINE (2024-2 6 season) 2025 INFLUENZA VACCINE (#1) 2025 Respiratory Syncytial Virus (RSV) Vaccine Pt: or over 60 yrs (1 - 1-dose 75+ series) 2026 HEPATITIS B VACCINE Aged Out No longe r eligible based on patient's age to complete this topic HIB VACCINE Aged Out No longer eligi ble based on patient's age to complete this topic HPV VACCINE Aged Out No longer eligi ble based on patient's age to complete this topic MENINGOCOCCAL (Group B) VACC INE SHARED DECISION-MAKING Aged Out No longer eligibl e based on patient's age to complete this topic MENINGOCOCCAL GROUPS A/C/Y/W VACCINE Aged Out No longer eligible b ased on patient's age to complete this topic Care Teams Divorce Mediator Relationship Specialty Start Date End Date Barry Groves DO [address] [place] [address] PCP - General Internal Medicine 06/14/18
--- OUTSIDE RECORDS SUMMARY | 2025-09-22 07:43 | XMS_ITS | Clinical Summary ---
Author Organization [facility] Address [address] [place] [id number] Phone Care Team Providers Care Industrial Engineering Analyst Name Role Phone Barry Groves Primary Care Provider [phone] Allergies Active Allergy Reactions Criticality Noted Date Comments Azithromycin Cephalexin Rash Medium 05/18/2019 Sulfa Antibiotics Rash Low Medications Multiple Vitamin (MULTIVITAMIN) capsule 05/27/20 12 Active aspirin (ASPIR) 81 MG EC tablet 1 daily 0 11/19/19 19 Active ALPRAZolam (XANAX) 0.5 MG tablet 1prn 0 12/03/19 17 Active traZODone (DESYREL) 100 MG tablet 1qhs 0 12/03/19 17 Active nitroglycerin (NITROSTAT) 0.4 MG SL tablet as needed. 0 07/04/20 18 Active atorvastatin (LIPITOR) 40 MG tablet atorvastatin 40 mg tablet 10/11/19 19 Active pneumococcal polysaccharide (Pneumovax 23) 25 MCG/0.5ML vaccine Pneumovax-23 25 mcg/0.5 mL injection syringe ADM 0.5ML IM UTD Active fluticasone (FLONASE) 50 MCG/ACT nasal spray 03/09/20 20 Active omeprazole (PriLOSEC) [address] capsule Take 20 mg by mouth 1 (one) time each day 11/13/19 21 Active metFORMIN XR 500 MG 24 hr tablet Take 500 mg by mouth 2 (two) times a day 05/21/20 21 Active metoprolol tartrate (LOPRESSOR) 50 MG tablet TAKE 1 TABLET BY MOUTH TWICE DAILY 60 tablet 11 04/12/20 22 Active valsartan-hydroCHL OROthiazide (DIOVAN-HCT) 160-25 MG per tablet Take 1 tablet by mouth 1 (one) time each day 30 tablet 11 04/14/20 22 Active Contour Next Test test strip USE TO CHECK BLOOD SUGAR TWICE DAILY 05/30/20 22 Active Cholecalciferol 25 MCG (1000 UT) chewable tablet Chew Acti ve Active Problems Problem Noted Date Diagnosed Date Obstructive sleep apnea syndrome 05/18/2019 Coronary arteriosclerosis in [place] artery 10/01 Overview (05/18/2019): Last Assessment & Plan: Ms. Proctor presents post single vessel CABG after failed PCI complicated by acute dissection and RV failure. She denies chest pain or anginal symptoms. She will continue aspirin, statin, and beta gil as well as Brilinta for now. Will discuss with Dr. Joe need for continuing Brilinta. She is to start cardiac rehab at [facility] and plans to follow up with Dr. Garcia at [facility] for ongoing cardiology care. I have asked to arrange appointment in the next 1-2 weeks. Paroxysmal atrial fibrillation 10/01/2018 Overview (05/18/2019): Last Assessment & Plan: History of post-operative AF. EKG in office today demonstrates sinus rhythm. Amiodarone discontinued due to nausea, she remains on metoprolol. Hyperlipidemia 07/04/2018 Coronary arteriosclerosis in [place] artery 06/19 Overview (05/18/2019): Overview: Added automatically from request for surgery [id number] Stage 3b chronic kidney disease 12/05/2016 Essential (primary) hypertension 12/05/2016 Hypercalcemia 04/12/2012 Essential (primary) hypertension 04/12/2012 Type 2 diabetes mellitus without complication Immunizations Immunization Administration Dates Next Due Influenza TIV (IM) 08/16/2021,07/01/2020, 019 PPD Test 06/14/2018 Pneumococcal Conjugate 06/02/2017 Family History Medical History Relation Comments Hypertensive disorder Father Kidney disease Father Kidney stone Neg Hx Relation Status Comments Father Social History Tobacco Use Types Packs/Day Years Used Date Smoking Tobacco: Former Cigarettes Q uit: 01/17/2007 Smokeless Tobacco: Never Alcohol Use Standard Drinks/Week Comments No 0 (1 standard drink = 0.6 oz pur e alcohol) AUDIT-C Answer Date Recorded Frequency of Alcohol Consumption Never 01/17/2019 Average Number of Drinks Not on file 019 Frequency of Binge Drinking Not on file 12/31 Comments Unknown Sex and Gender Information Value Date Recorded Sex Assigned at Not on file Legal Sex Female 8:16 AM [facility] Gender Identity Not on file Sexual Orientation Not on file Last Filed Vital Signs Vital Sign Reading Time Taken Comments Blood Pressure 124/70 06/20/2022 10:53 AM CDT Pulse 72 06/20/2022 10:53 AM CDT Temperature 36.2 C (97.1 F) 06/20/2022 10:53 AM CDT Respiratory Rate - - Oxygen Saturation - - Inhaled Oxygen Concentration - - Weight 64.4 kg (142 lb) 06/20/2022 10:53 AM CDT Height 162.6 cm (5' 4) 06/20/2022 10:53 AM CDT Body Mass Index 24.37 06/20/2022 10:53 AM CDT Plan of Treatment Health Maintenance Due Date Last Done Comments Pneumococcal PPSV23/PCV13 65 + Years / Low and Medium Risk (1 of 2 - PCV) 2001 Influenza Vaccine (#1) 2025 , 07/01/2020, 07/02/[address] [place] [address] MEDICARE [facility] Care Teams Industrial Engineering Analyst Relationship Specialty Start Date End Date Barry Groves DO [address] [facility] [address] [place] [address] PCP - General Internal Medicine 01/17/19
--- OUTSIDE RECORDS SUMMARY | 2025-09-22 07:43 | XMS_ITS | Clinical Summary ---
Author Organization [facility] Address [facility] [place] [address] Care Team Providers Care Temporary Staff Accountant Name Role Phone Unavailable Primary Care Provider Unavailabl e Allergies No known active allergies Medications No known medications Social History Tobacco Use Types Packs/Day Years Used Date Smoking Tobacco: Every Day Cigarettes Smokeless Tobacco: Never Alcohol Use Standard Drinks/Week Comments Not Currently 0 (1 standard drink = 0.6 oz pur e alcohol) Comments No Sex and Gender Information Value Date Recorded Sex Assigned at Not on file Legal Sex Female 6:21 PM CDT Gender Identity Not on file Sexual Orientation Not on file Last Filed Vital Signs Vital Sign Reading Time Taken Comments Blood Pressure 181/81 09/15/2020 4:46 PM PEST CONTROL PILOT Pulse 39 09/15/2020 4:46 PM PEST CONTROL PILOT Temperature 36.6 C (97.9 F) 09/15/2020 4:46 PM PEST CONTROL PILOT Respiratory Rate 18 09/15/2020 4:46 PM PEST CONTROL PILOT Oxygen Saturation 97% 09/15/2020 4:46 PM PEST CONTROL PILOT Inhaled Oxygen Concentration - - Weight 99.8 kg (220 lb) 09/15/2020 4:46 PM PEST CONTROL PILOT Height 165.1 cm (5' 5) 09/15/2020 4:46 PM PEST CONTROL PILOT Body Mass Index 36.61 09/15/2020 4:46 PM PEST CONTROL PILOT Plan of Treatment Health Maintenance Due Date Last Done Comments Colorectal Cancer Screening Colonoscopy (10 Years) 1951 Hepatitis C 1969 DTaP, Tdap and Td Vaccines ( 1 - Tdap) 1970 Pneumococcal Vaccine: 50+ Ye ars (1 of 2 - PCV) 1970 06/02/2017 Mammogram Screening 1991 Zoster Vaccines (1 of 2) 2001 Annual Medicare Wellness Visit 2016 Dexa Scan (General) 2016 COVID-19 Vaccine ( - 2024-2 6 season) 2025 Influenza Adult (#1) 2025 07/02/2019 RSV Immunization or 60+ Years (1 - 1-dose 75+ series) 2026 Hepatitis A Vaccines Aged Out No long er eligible based on patient's age to complete this topic Meningococcal B Vaccine Aged Out No l onger eligible based on patient's age to complete this topic Meningococcal Vaccine Aged Out No maurice quintin eligible based on patient's age to complete this topic RSV Immunizations Under 20 Months Aged Out No longer eligible based on patient's age to complete this topic Insurance MEDICARE [facility]
[2025-09-22 07:46] VITALS: BP 158/84; PULSE 74; RESP 16; TEMP 36.4; O2SAT 97
--- NOTE | 2025-09-22 08:12 | ED.GENADULT ---
HPI - General Adult General Chief complaint: Epistaxis Stated complaint: nose bleeds Time Seen by Provider: 09/22/25 07:43 History of Present Illness HPI narrative: 75 old female presents emergency department for evaluation for intermittent epistaxis. Patient states this been ongoing for the last 1.5 weeks. Patient does take an aspirin but states she has been holding this. Patient has been using saline nasal spray. Patient's primary care physician told her the symptoms persist she needs to present to the emergency department. Patient did have bleeding again this morning but upon arrival emergency department all bleeding has resolved. Patient was able to get the bleeding to stop using a cold washcloth. Related Data Home Medications ?Medication ?Instructions ?Recorded ?Confirmed ?Last Taken ?Type aspirin 81 mg tablet,delayed 81 mg PO DAILY 08/05/19 08/23/25 Unknown History release (Adult Aspirin Regimen) glucosamine sulf dipot 1 cap PO DAILY 04/24/21 08/23/25 Unknown History chlr,msm,chond 550 mg-C 30 mg-addie 1 mg capsule (Glucosamine Chondroitin) omega-3 fatty acids 1 cap PO DAILY 04/24/21 08/23/25 Unknown History isosorbide mononitrate 20 mg tablet See Rx Instructions PO ONCE 04/30/24 08/23/25 Unknown History Allergies Allergy/AdvReac Type Severity Reaction Status Date / Time linagliptin (From Tradjenta) Allergy Mild Nausea Verified 08/14/25 08:57 cephalexin Allergy Unknown Unknown Verified 08/14/25 08:57 ezetimibe Allergy Unknown Unknown Verified 08/14/25 08:57 rosuvastatin Allergy Unknown Unknown Verified 08/14/25 08:57 Sulfa (Sulfonamide Allergy Unknown Unknown Verified 08/14/25 08:57 Antibiotics) telithromycin Allergy Unknown Unknown Verified 08/14/25 08:57 azithromycin AdvReac Mild Diarrhea Verified 09/22/25 07:50 carvedilol AdvReac Mild Diarrhea Verified 09/22/25 07:50 Review of Systems Review of Systems: All systems reviewed & are unremarkable except as noted in HPI and below PMFSH Past Medical History Medical History Type 2 diabetes mellitus with hyperglycemia Chronic renal failure, stage 3 (moderate) Other hyperlipidemia Type 2 diabetes mellitus with kidney complication, without long-term current use of insulin Surgical History Surgical History H/O coronary artery bypass surgery H/O heart bypass surgery History of tubal ligation Family History Family History Father Hypertension Family history of diabetes mellitus in first degree relative Diabetes mellitus Sibling Hypertension Family history of diabetes mellitus in first degree relative Acute myocardial infarction Mother Family history of elevated blood lipids Patient's mother is in good health Hypertension Other Family history of coronary artery disease Family history of kidney disease Social History Social History (Updated 08/14/25 @ 09:02 by Brianna Gomez MA) Smoking status: Never smoker Second hand tobacco smoke exposure: No Smoking end date: 10/02/05 Alcohol intake: current Lack of Transportation: No Lack of Food: Never True Current Housing: I Have Housing Concerned About Future Housing: No Difficulty Paying Gas/Electric Bills: No Difficulty Paying for Meds: No Currently Unemployed: No Education: Bachelor's Degree Difficulty w/ Childcare or Family Care: No Living arrangements: with family Gender identity (if verbalized by the patient): Female Sexual Orientation (if Verbalized by the Patient): Straight or Heterosexual Spiritual care concerns: No Exam Narrative: APPEARANCE: Well appearing, no pain, no distress, well-nourished. HEAD: normocephalic, atraumatic. EYES: PERRLA/EOMI, conjunctivae clear. NOSE: Irritation of kesselbach plexus on right naris, no active bleeding EARS:TMS clear with good light reflex. THROAT: Pharynx clear, no exudate. NECK: Supple. No adenopathy, no masses. RESPIRATORY: Airway patent, respirations nonlabored. Clear to auscultation bilaterally, no rales, rhonchi, wheezing. CARDIOVASCULAR: Regular rate and rhythm without murmurs rubs or gallops. ABDOMINAL: Soft, nontender, nondistended, normal bowel sounds MUSCULOSKELETAL: Moves all extremities. Strength/ROM intact, No edema, No calf tenderness. NEURO: Alert. Cranial nerves II through XII intact. Good gait. Good coordination SKIN: Warm, dry. Normal Color Course Vital Signs Vital signs: Vital Signs Temperature 97.6 F 09/22/25 07:46 Pulse Rate 74 09/22/25 07:46 Respiratory Rate 16 09/22/25 07:46 Blood Pressure 158/84 H 12/22/25 07:46 Pulse Oximetry 97 09/22/25 07:46 Oxygen Delivery Room Air 09/22/25 07:46 Temperature 97.6 F 09/22/25 07:46 Pulse Rate 79 09/22/25 09:00 Respiratory Rate 14 09/22/25 09:00 Blood Pressure 146/78 H 09/22/25 09:00 Pulse Oximetry 99 09/22/25 09:00 Oxygen Delivery Room Air 09/22/25 07:46 MDM MDM Narrative Medical decision making narrative: 75 old female present to the emergency department for evaluation for intermittent epistaxis. Upon arrival emergency department epistaxis was resolved. Patient will be provided outpatient follow-up with ENT. Patient was educated on home treatment for this. Patient's vital signs are within normal limits. Low concern for hemorrhage. Differential Diagnosis Differential Diagnosis: epistaxis Discharge Plan Discharge Clinical Impression: Acute anterior epistaxis Patient Disposition: Home Condition: Stable Instructions: Antibiotic Form, Nosebleed (ED) Additional Instructions: Nasal clamp as directed if bleeding resumes. Use a cool-mist humidifier to keep your nasal membranes hydrated. Avoid introducing anything into the nose. Have close follow-up with ENT. If you have worsening symptoms please call or return to the emergency department. Patient Language: Tristanian Prescriptions: No Action Fish Oil Capsule 1 cap PO DAILY Glucosamine Chondroitin 550-30-1 mg Capsule 1 cap PO DAILY atorvastatin 80 mg tablet 80 mg PO DAILY Qty: 90 2RF isosorbide mononitrate 20 mg tablet See Rx Instructions PO ONCE Rx Instructions: 40mg orally once; give doses 7 hrs apart aspirin [Adult Aspirin Regimen] 81 mg tablet,delayed release (DR/EC) 81 mg PO DAILY trazodone 100 mg tablet 100 mg PO QHS Qty: 90 3RF valsartan-hydrochlorothiazide 160-25 mg tablet See Rx Instructions .ROUTE .COMPLEX Qty: 90 3RF Dose Instruction: TAKE 1 TABLET BY MOUTH DAILY Rx Instructions: TAKE 1 TABLET BY MOUTH DAILY metoprolol tartrate 50 mg tablet See Rx Instructions .ROUTE .COMPLEX Qty: 180 3RF Dose Instruction: TAKE 1 TABLET BY MOUTH EVERY 12 HOURS Rx Instructions: TAKE 1 TABLET BY MOUTH EVERY 12 HOURS (DME) blood-glucose meter [Contour Next Meter] [facility] See Rx Instructions .ROUTE .MEDSUPPLY Qty: 1 0RF Rx Instructions: As directed (DME) Contour Next Test Strips Strip See Rx Instructions .ROUTE .MEDSUPPLY Qty: 100 3RF Rx Instructions: use to check BS 3 times weekly metformin 500 mg tablet extended release 24 hr See Rx Instructions .ROUTE .COMPLEX Qty: 180 2RF Dose Instruction: TAKE 1 TABLET BY MOUTH TWICE DAILY Rx Instructions: TAKE 1 TABLET BY MOUTH TWICE DAILY Ozempic 0.25 mg or 0.5 mg (2 mg/3 mL) pen injector 0.5 mg subcut WEEKLY 90 Days Qty: 9 0RF omeprazole 20 mg capsule,delayed release(DR/EC) 20 mg PO DAILY Qty: 90 3RF alprazolam 0.5 mg tablet 0.5 mg PO .hs PRN (Reason: sleep) Qty: 30 0RF Rx Instructions: Fill on/after 10/5 mupirocin [Centany] 2 % ointment 1 applic topical BID Qty: 15 0RF Rx Instructions: In nostrils Follow-up/Referrals: Hernandez Valderrama DO [Primary Care Provider, Internal Medicine] Devonte Salgado MD [Physician, Ear, Nose, Throat]
[2025-09-22 09:00] VITALS: BP 146/78; PULSE 79; RESP 14; O2SAT 99
--- OUTSIDE RECORDS SUMMARY | 2025-09-22 09:13 | XMS_ITS | Clinical Summary ---
Author Organization [facility] [address] Address [address] [place] [address] Care Team Providers Care Launch Check Out Name Role Phone Hernandez Valderrama DO Primary Care Provider [phone] Allergies Active Allergy Reactions Criticality Noted Date [...] mg SL tabletIndication s:Coronary artery disease of [place] heart with stable angina pectoris, unspecified vessel [...] 09/07 Assessment & Plan (09/07/2021 5:38 PM MANAGER HOME IMPROVEMENT): Ms. Proctor has a primary complaint of [...] CABG 10/11/2018 Coronary artery disease invo lving [place] coronary artery of [place] heart without angina pectoris 10/01/2018 Assessment & Plan (10/01/2018 8:03 AM MANAGER HOME IMPROVEMENT): Ms. Proctor presents post single vessel CABG after failed PCI complicated by acute dissection and RV failure. She denies chest pain or anginal symptoms. She will continue aspirin, statin, and beta gil as well as Brilinta for now. Will discuss with Dr. Joe need for continuing Brilinta. She is to start cardiac rehab at [facility] and plans to follow up with Dr. Garcia at [facility] for ongoing cardiology care. I have asked to arrange appointment in the next 1-2 weeks. Right ventricular systolic dysfunction 8 Assessment & Plan (10/01/2018 8:13 AM MANAGER HOME IMPROVEMENT): Ms. Proctor presents with NYHA Class II symptoms. She is compensated and euvolemic on exam. She will follow up in the 3 months in the Heart Failure Clinic. I have asked her to obtain a repeat echocardiogram when she sees her primary building associate. Peripheral artery disease 10/01/2018 Assessment & Plan (10/01/2018 8:18 AM MANAGER HOME IMPROVEMENT): Continue aspirin and statin. Paroxysmal atrial fibrillation 10/01/2018 Assessment & Plan (10/01/2018 8:16 AM MANAGER HOME IMPROVEMENT): History of post-operative AF. EKG in office today demonstrates sinus rhythm. Amiodarone discontinued due to nausea, she remains on metoprolol. Coronary artery disease invo lving [place] coronary artery of [place] heart with angina pectoris 07/03/2018 Overview (07/03/2018): Added automatically from request for surgery [id number] Abnormal stress test 06/21/2018 CKD stage 3 due to type 2 diabetes mellitus 06/03 Assessment & Plan (10/01/2018 8:26 AM MANAGER HOME IMPROVEMENT): Ms. Proctor has chronic kidney disease. She is to have follow up labs done at Dr. Groves's office to monitor renal status. I have encouraged her to schedule follow up with her beater and pulper feeder in the next couple of weeks. Coronary artery disease of n ative artery of [place] heart with stable angina pectoris 06/19/2018 Type 2 diabetes mellitus 02/18/2014 Overview (01/06/2017): DMII WO CMP UNCNTRLD Hypertension 08/14/2012 Overview (01/06/2017): Hypertension, Unspecified Assessment & Plan (10/01/2018 8:20 AM MANAGER HOME IMPROVEMENT): BP is elevated in the office today. I have asked her to increase metoprolol dose to 25 mg BID. I have also asked that she monitor BP's at home and call next week with readings. She will need close monitoring of BP and better control. Hyperlipidemia 08/14/2012 Overview (01/06/2017): HYPERLIPIDEMIA NEC/NOS Assessment & Plan (10/01/2018 8:21 AM MANAGER HOME IMPROVEMENT): Continue statin. Follow up monitoring per primary building associate. Encounter for long-term (cur rent) use of [...] on file Legal Sex Female 9:08 AM MANAGER HOME IMPROVEMENT Gender Identity Not on file Sexual Orientation [...] CDT Respiratory Rate 16 09/06/2018 10:24 AM MANAGER HOME IMPROVEMENT Oxygen Saturation 96% 05/16/2025 1:52 PM CDT [...] history exists Medical Devices Implanted Type Area Monitoring Analyst Device Identifier Shelf Expiration Date Model / Serial / Lot Terumo Cardio Vascular [id number] Gelweave Od6 Mm L30 Cm Suture Retention Unique Hydrolyzable Abdomen Thorax Straight Graft Cardiovascular Gelatin Polyester Woven - [id number] - [id number] Implanted:Qty: 1 on 07/18/2018 by Celio Campbell MD at [facility] Graft N/A: Heart Terumo Cardio Vascular 05/01/2021 [id number] / [id number] / Amplatzer Carbon Sequestration Plant Operator Phil [id number] Amplatzer 12mm 100cm 8mm 1 Layer Wire Mesh 1 Lobe Design Optimal - [id number] Implanted:Qty: 1 on 07/26/2018 by Celio Campbell MD at [facility] Other - see comments N/A: Heart Amplatzer Carbon Sequestration Plant Operator Phil [id number] 05/01/2020 9-PLUG- 012 / / [id number] Description:Vascular plug pl aced post RVAD removal [employer] X [id number] Resolute [place] 3mm 2.1-2.7fr 38mm 140cm Rapid Exchange Radiopaque - [id number] Implanted:Qty: 1 on 07/18/2018 by Terence Joe MD at [facility] Stent N/A: Coronary Medtronic [employer] X 01/21/2020 [id number] / / [id number] Description:NUNU to RCA Medtronic [employer] X [id number] Resolute [place] 4mm 2.1-2.7fr 12mm 140cm Rapid Exchange Radiopaque - [id number] Implanted:Qty: 1 on 07/18/2018 by Terence Joe MD at [facility] Stent N/A: Coronary Med[employer] X 09/05/2019 [id number] / / [id number] Description:NUNU to RCA Procedures Procedure Name Priority Date/Time Associated Diagnosis Comments POCT LIPID PANEL Routine 05/16/2025 2:43 PM CDT Coronary artery disease involving [place] coronary artery of [place] heart with angina pectoris EGFR Routine 08/04/2018 12:21 AM CDT HEMOGLOBIN A1C Routine 08/02/2018 12:32 AM CDT from Last 3 Months or Most Recently Relevant to Health Maintenance Results * (ABNORMAL) POCT lipid panel (05/16/2025 2:43 PM CDT) Pathologist [facility] Cholesterol, POC 163 <200 MG/DL HDL, POC [...] * eGFR (08/04/2018 12:21 AM CDT) Pathologist [facility] eGFR 36 mL/min/1.7 3 m2 [facility] Comment: Interpretive Data Reference Interval Normal >/= 90 mL/min/1.73m2 Mildly decreased* 60 - 89 mL/min/1.73m2 Mildly to moderately decreased 45 - 59 mL/min/1.73m2 Moderately to severely decreased 30 - 44 mL/min/1.73m2 Severely decreased 15 - 29 mL/min/1.73m2 Kidney Failure < 15 mL/min/1.73m2 *Relative to young adult level If -Colombian multiply value by 1.16. Estimated glomerular filtration [...] AM CDT 08/04/2018 12:40 AM CDT Narrative [facility] - 08/04/2018 1:09 AM CDT us Quentin MUNOZ LAB BLOOD ORDERABLES Final R esult [facility] [address] Department [place] [address] * (ABNORMAL) Hemoglobin A1c (08/02/2018 12:32 AM CDT) Hgb A1C 6.1(H) 4.0 - 5.6 % [facility] Estimated Average Glucose 128 mg/dL [facility] Comment: The ADA recommends reporting an estimated Average Glucose (eAG) with all Hemoglobin A1c results using the equation derived from a study of 507 normal and diabetic adults. Minority populations were underrepresented and children were not included. (Diabetes Care 31:1120-8802, 2008). The eAG is not equivalent to a fasting glucose. Blood specimen (specimen) 08/02/2018 12:32 AM CDT 08/02/2018 1:09 AM CDT Narrative [facility] - 08/02/2018 1:44 AM CDT us Quentin MUNOZ LAB BLOOD ORDERABLES Final R esult [facility] [address] Department [place] [address] from Last 3 Months or Most Recently Relevant to Health Maintenance Insurance UHC MEDICARE ADVANTAGE U[employer] MEDICARE ADVANTAGE Advance Directives For more information, please contact: [phone] * Full Code (Latest Code Status on File) Date Activated Date Inactivated Comments 07/18/2018 11:13 PM 08/04/2018 4:30 PM Healthcare Agents on File Name Relationship Healthcare Agent Relationshi p Communication Jalil Navas Spouse First Alternate Health Care Agent Care Teams Launch Check Out Relationship Specialty Start Date End Date Hernandez Valderrama DO PCP - General Internal Medicine 06/27/24
--- OUTSIDE RECORDS SUMMARY | 2025-09-22 09:13 | XMS_ITS | Encounter Summary ---
Author Organization [facility] Healthcare Address [address] [place] [address] Care Team Providers Care Rivet Maker Name Role Phone Barry Groves MD Primary Care Provider [phone] Hernandez Valderrama DO Primary Care Provider [phone] Encounter Details Date Type Department Care Team (Late st Contact Info) Description 12/11/2017 Orders Only [facility] Health Information Management [address] [place] [id number] Scanning, Provider Social History Tobacco Use Types Packs/Day Years Used Date Smoking Tobacco: Former Alcohol Use Standard Drinks/Week Comments Yes 0 (1 standard drink = 0.6 oz pur e alcohol) Comments Unknown Sex and Gender Information Value Date Recorded Sex Assigned at Not on file Legal Sex Female 9:08 AM 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
--- OUTSIDE RECORDS SUMMARY | 2025-09-22 09:13 | XMS_ITS | Clinical Summary ---
Author Organization [facility] Address [address] [place] [address] Care Team Providers Care Parimutuel Ticket Checker Name Role Phone Barry Groves DO Primary Care Provider [phone] Source Comments [facility],non-owned Affiliates and Associated Physician Practices is amultiple site organization consisting of ambulatory clinics and hospital sitesin [place], [place], [place] and [place]. This disclosure is being madepursuant to the Care Everywhere program and may not contain all information available regarding this patient. Last updated 18.[facility] [employer] Allergies Active Allergy Reactions Criticality Noted Date [...] age to complete this topic Care Teams Parimutuel Ticket Checker Relationship Specialty Start Date End Date Barry Groves DO [address] [address] [place] [address] PCP - General Internal Medicine 06/14/18
--- OUTSIDE RECORDS SUMMARY | 2025-09-22 09:13 | XMS_ITS | Clinical Summary ---
Author Organization [facility] Address [address] [place] [address] Phone Care Team Providers Care Mandrel Press Hand Name Role Phone Barry Groves Primary Care Provider [phone] Allergies Active Allergy Reactions Criticality Noted Date [...] sleep apnea syndrome 05/18/2019 Coronary arteriosclerosis in [place] artery 10/01 Overview (05/18/2019): Last Assessment & Plan: Ms. Proctor presents post single vessel CABG after failed PCI complicated by acute dissection and RV failure. She denies chest pain or anginal symptoms. She will continue aspirin, statin, and beta gil as well as Brilinta for now. Will discuss with Dr. Joe need for continuing Brilinta. She is to start cardiac rehab at [facility] and plans to follow up with Dr. Garcia at [facility] for ongoing cardiology care. I have asked to arrange appointment in the next 1-2 weeks. Paroxysmal atrial fibrillation 10/01/2018 Overview (05/18/2019): Last Assessment & Plan: History of post-operative AF. EKG in office today demonstrates sinus rhythm. Amiodarone discontinued due to nausea, she remains on metoprolol. Hyperlipidemia 07/04/2018 Coronary arteriosclerosis in [place] artery 06/19 Overview (05/18/2019): Overview: Added automatically from request for surgery [id number] Stage 3b chronic kidney disease 12/05/2016 Essential [...] on file Legal Sex Female 8:16 AM [facility] Gender Identity Not on file [...] (#1) 2025 , 07/01/2020, 07/02/[address] [place] [address] MEDICARE [facility] Care Teams Mandrel Press Hand Relationship Specialty Start Date End Date Barry Groves DO [address] [facility] [address] [place] [address] PCP - General Internal Medicine 01/17/19
--- OUTSIDE RECORDS SUMMARY | 2025-09-22 09:13 | XMS_ITS | Clinical Summary ---
Author Organization [facility] Address [facility] [place] [address] Care Team Providers Care Triage Clinician Name Role Phone Unavailable Primary Care Provider [...] Comments Blood Pressure 181/81 09/15/2020 4:46 PM LOGISTICS SUPPLY OFFICER Pulse 39 09/15/2020 4:46 PM LOGISTICS SUPPLY OFFICER Temperature 36.6 C (97.9 F) 09/15/2020 4:46 PM LOGISTICS SUPPLY OFFICER Respiratory Rate 18 09/15/2020 4:46 PM LOGISTICS SUPPLY OFFICER Oxygen Saturation 97% 09/15/2020 4:46 PM LOGISTICS SUPPLY OFFICER Inhaled Oxygen Concentration - - Weight 99.8 kg (220 lb) 09/15/2020 4:46 PM LOGISTICS SUPPLY OFFICER Height 165.1 cm (5' 5) 09/15/2020 4:46 PM LOGISTICS SUPPLY OFFICER Body Mass Index 36.61 09/15/2020 4:46 PM LOGISTICS SUPPLY OFFICER Plan of Treatment Health Maintenance Due Date [...] age to complete this topic Insurance MEDICARE [facility]
== END 2025-09-22 09:01 | disposition home or self-care (01) ==
PROVIDERS: Emergency Provider Emergency Medicine; PCP Internal Medicine
DX: R04.0 Epistaxis (principal); E11.22 Type 2 diabetes mellitus with diabetic chronic kidney disease; N18.30 Chronic kidney disease, stage 3 unspecified; E78.49 Other hyperlipidemia; Z95.1 Presence of aortocoronary bypass graft; Z79.899 Other long term (current) drug therapy; Z79.82 Long term (current) use of aspirin; Z79.84 Long term (current) use of oral hypoglycemic drugs; Z79.85 Long-term (current) use of injectable non-insulin antidiabetic drugs
CPT/HCPCS: 99281